=== PATIENT | male | born 1985 | race African-American/Black ===

== ENCOUNTER 2022-08-20 19:46 | Observation (INO) ==
[2022-08-20] MEDS ORDERED: SODIUM CHLORIDE 0.9% 1000ML 1,000 ML IV ONE (20:55)
--- NOTE | 2022-08-20 20:55 | Emergency Department Note ---
Impression & Plan Depression with suicidal ideation, Overdose by ingestion ED Provider Note NAME: VERNON PARTIDA AGE: 36 SEX: M : 1985 ARRIVES VIA: Walk-In INFORMANT: Patient, history is also obtained from the present ED PROVIDER(S): Jimmie Catherine DO CHIEF COMPLAINT: Overdose HPI: The patient is a 36-year-old male who presented [facility] for an evaluation of medication overdose. The patient takes multiple medications for psychiatric illness. He denies having any history of suicidal ideation the past. He is being very guarded and does not want to participate in this evaluation. The patient at this time admits that he took a weeks worth of his medications all at 1 time between 5 and 6 PM and attempt to harm himself. The patient has had no vomiting. He has had no fevers. He had no recent trauma. He has been very guarded and will not admit to why he is having this feeling that he wants to harm himself. ROS: See above HPI for pertinent positives & negatives. A total of 10 systems reviewed and were otherwise negative. PAST MEDICAL HISTORY: See Below PAST SURGICAL HISTORY: See Below FAMILY HISTORY: See Below SOCIAL HISTORY: See Below HOME MEDICATIONS: See Below ALLERGIES: See Below VITALS: See Below PHYSICAL EXAMINATION: GENERAL: The patient is awake and alert. He is resting comfortably. EYES: The conjunctivae are clear. The pupils are round and reactive. EARS, NOSE, MOUTH AND THROAT: The nose is without any evidence of any deformity. NECK: The neck is nontender and supple. RESPIRATORY: Normal respiratory effort is noted there is no evidence of wheezing rhonchi or rales CARDIOVASCULAR: Regular rate and rhythm noted there no murmurs rubs or gallops normal S1 normal S2. GASTROINTESTINAL: The abdomen is soft. Abdomen is nontender. MUSCULOSKELETAL/EXTREMITIES: There is no evidence of gross deformity full range of motion is noted in the hips and shoulders. SKIN: There is no obvious evidence of any rash. There are no petechiae, pallor or cyanosis noted. NEUROLOGIC: Patient is awake alert and oriented x3 strength is symmetric patellar reflexes are 2+ bilaterally PSYCH: The patient makes poor eye contact mostly evaluation. His affect is very flat. Patient is at this time is admitting that he was trying to harm himself MEDICAL DECISION MAKING: The patient is a 36-year-old male who presented to the emergency department for mental health evaluation. [facility] He admits t hat he was stocking up his medications over the course of the last week. He took a handful of his outpatient medications at 1 time between 5 and 6 PM. The patient states that he was trying to hurt himself. The patient was not able to be medically cleared in the emergency department. His case was discussed with the poison center, [facility]. They recommended an observation overnight to continue to monitor the patient for symptoms. Initially his EKG showed no QTc prolongation or QRS prolongation. They recommended repeat EKG in 4 to 6 hours as well as magnesium if the QTc were to prolong. They recommended IV fluids. They recommended Reglan if the patient needed antiemetics as well as benzodi azepines at the patient became educated. I discussed the patient's condition with the on-call [facility] hospitalist. Triage Nursing notes reviewed. Prior medical records reviewed Vital Signs: reviewed and remarkable for no significant abnormalities Differential diagnosis: Mood disorder, infection, hypoglycemia, electrolyte abnormalities, cardiac sources, intracerebral event, toxicologic, trauma, neurologic, as well as other pathologies. ER treatment provided: See below Diagnostics interpreted by me: ECG: EKG was obtained in the emergency department. My interpretation is normal sinus rhythm at 86 bpm. There is no ectopy. There is no acute ST segment abnormalities noted. QTc was 411 ms. QRS duration was 80 ms. Cardiac Monitoring: An order was placed for continuous cardiac monitoring. The monitor shows a rate of 85 bpm with sinus rhythm. Laboratory studies: As stated above and show below. Imaging studies: See below. Consultation(s): Poison control was consulted. At this time they recommend 12-hour observation given the patient's unknown amount of ingestion. They also recommended the usual labs including Tylenol and aspirin levels. They recommended repeat EKG in 4 to 6 hours. They recommend 2 g of magnesium IV if the QTc becomes greater than 500. They also recommend IV fluids Reglan if needed for vomiting and benzodiazepines as needed. I discussed this case with Dr. Dickson [facility] Past Med/Surg History Medical History (Updated 08/20/22 @ 22:43 by Jimmie Catherine DO) Depression with anxiety Social History Smoking Status: Never smoker Feels Safe at Home: Yes Results & Data (ED) Vital Signs Vital Signs - 24 hr 08/20/22 19:54 08/20/22 20:32 08/20/22 20:35 Temperature 36.6 C Temperature Source Temporal Artery Scan Pulse Rate 94 H 85 Pulse Rate [Finger] 88 Respiratory Rate 18 17 Respiratory Effort / Characteristics Non-Labored Spontaneous Respiratory Depth Normal Normal Blood Pressure 135/91 Blood Pressure [Right Arm] 114/90 Blood Pressure Mean 105 Blood Pressure Mean [Right Arm] 98 Blood Pressure Position Sitting Pulse Oximetry 96 98 Oxygen Delivery Method Room Air Room Air Sepsis Recent Fever Within 48 Hours No Sepsis New/Unexplained Change in Mental Status N/A Sepsis Action Taken by Nursing No Action Required Home Medications Current Medication List: was personally reviewed by me Laboratory Data Attestation: I reviewed the patient's lab results. 08/20/22 21:00 08/20/22 21:00 Lab Results 08/20/22 08/20/22 08/20/22 Range/Units 21:00 21:00 21:00 WBC 6.20 (4.8-10.8) K/ul RBC 4.22 L (4.70-6.10) M/uL Hgb 13.7 L (14.0-18.0) g/dl Hct 39.7 L (42.0-52.0) % MCV 94.1 (80.0-100.0) fL MCH 32.5 (25.0-34.0) pg MCHC 34.5 (32.0-36.0) g/dL RDW Std Deviation 39.9 (36.4-46.3) fL RDW Coeff of Edward 11.7 (11.5-14.5) % Plt Count 251 (130-400) K/uL MPV 10.2 (9.4-12.4) fL Immature Gran % (Auto) 0.2 % Neut % (Auto) 37.9 % Lymph % (Auto) 46.1 % Cole % (Auto) 9.2 % Eos % (Auto) 6.0 % Baso % (Auto) 0.6 % Neut # (Auto) 2.35 (1.40-6.50) K/uL Lymph # (Auto) 2.86 (1.2-3.4) K/uL Cole # (Auto) 0.57 (0.11-0.59) K/uL Eos # (Auto) 0.37 (0-0.50) K/uL Baso # (Auto) 0.04 (0-0.2) K/uL Immature Gran # (Auto) 0.01 (0.01-0.20) K/uL Sodium 140 (136-145) mmol/L Potassium 3.9 (3.5-5.1) mmol/L Chloride 105 (98-107) mmol/L Carbon Dioxide 29 (21-32) mmol/L Anion Gap 6 (3-11) BUN 12 (6-23) mg/dl Creatinine 0.93 (0.6-1.4) mg/dl Est Cr Clr Drug Dosing Not Reportable Est GFR ( Amer) 120.3 ml/min Est GFR (Non-Af Amer) 103.8 ml/min BUN/Creatinine Ratio 12.9 (10-20) Glucose 102 H (70-99(Fasting)) mg/dl Calcium 9.6 (8.5-10.1) mg/dl Magnesium 2.0 (1.7-2.4) mg/dl Total Bilirubin 0.5 (0.2-1.0) mg/dl AST 21 (13-39) U/L ALT 20 (7-52) U/L Alkaline Phosphatase 44 (34-104) U/L Total Protein 7.5 (6.0-8.3) gm/dl Albumin 4.4 (3.4-5.0) gm/dl Globulin 3.1 (2.5-4.0) gm/dl Albumin/Globulin Ratio 1.4 (0.9-2) TSH 1.373 (0.300-4.500) uIu/ml Salicylates (3.0-30) mg/dl Acetaminophen (10-30) ug/ml SARS-CoV-2, RNA, NAAT (NEGATIVE) 08/20/22 08/20/22 Range/Units 21:00 21:00 WBC (4.8-10.8) K/ul RBC (4.70-6.10) M/uL Hgb (14.0-18.0) g/dl Hct (42.0-52.0) % MCV (80.0-100.0) fL MCH (25.0-34.0) pg MCHC (32.0-36.0) g/dL RDW Std Deviation (36.4-46.3) fL RDW Coeff of Edward (11.5-14.5) % Plt Count (130-400) K/uL MPV (9.4-12.4) fL Immature Gran % (Auto) % Neut % (Auto) % Lymph % (Auto) % Cole % (Auto) % Eos % (Auto) % Baso % (Auto) % Neut # (Auto) (1.40-6.50) K/uL Lymph # (Auto) (1.2-3.4) K/uL Cole # (Auto) (0.11-0.59) K/uL Eos # (Auto) (0-0.50) K/uL Baso # (Auto) (0-0.2) K/uL Immature Gran # (Auto) (0.01-0.20) K/uL Sodium (136-145) mmol/L Potassium (3.5-5.1) mmol/L Chloride (98-107) mmol/L Carbon Dioxide (21-32) mmol/L Anion Gap (3-11) BUN (6-23) mg/dl Creatinine (0.6-1.4) mg/dl Est Cr Clr Drug Dosing Est GFR ( Amer) ml/min Est GFR (Non-Af Amer) ml/min BUN/Creatinine Ratio (10-20) Glucose (70-99(Fasting)) mg/dl Calcium (8.5-10.1) mg/dl Magnesium (1.7-2.4) mg/dl Total Bilirubin (0.2-1.0) mg/dl AST (13-39) U/L ALT (7-52) U/L Alkaline Phosphatase (34-104) U/L Total Protein (6.0-8.3) gm/dl Albumin (3.4-5.0) gm/dl Globulin (2.5-4.0) gm/dl Albumin/Globulin Ratio (0.9-2) TSH (0.300-4.500) uIu/ml Salicylates < 3.0 L (3.0-30) mg/dl Acetaminophen < 3 L (10-30) ug/ml SARS-CoV-2, RNA, NAAT NEGATIVE (NEGATIVE) Administered Medications Discontinued Medications Sodium Chloride (Nss 1000ml) 1,000 mls @ 999 mls/hr IV .Q1H1M ONE Stop: 08/20/22 21:55 Last Infusion: 08/20/22 22:39 Dose: 0 mls/hr Documented By: Admin: 08/20/22 21:32 Dose: 999 mls/hr Documented By: ASW Discharge Plan Visit Data Chief Complaint: Overdose (Accidental) Stated Complaint: NAUSEA,ABDOMINAL PAIN,SWALLOWED PRESCRIPTION ED Provider: Jimmie Catherine Discharge Problem: Depression with suicidal ideation, Overdose by ingestion Patient Disposition: Being Evaluated by Hospitalist Forms Stand Alone Forms: [facility] Referrals Referrals: Rosa Elena COSTELLO [Primary Care Provider] -
[2022-08-20 21:35] LABS: Basophils # (auto) 0.04 K/uL (0-0.2); Basophils % (auto) 0.6 %; Eosinophils # (auto) 0.37 K/uL (0-0.50); Hematocrit (blood only) 39.7 % (42.0-52.0); Hemoglobin 13.7 g/dl (14.0-18.0); Immature Granulocytes # (auto) 0.01 K/uL (0.01-0.20); Immature Granulocytes % (auto) 0.2 %; Lymphocytes # (auto) 2.86 K/uL (1.2-3.4); Lymphocytes % (auto) 46.1 %; Mean Corpuscular Hemoglobin 32.5 pg (25.0-34.0); Mean Corpuscular Hgb Conc 34.5 g/dL (32.0-36.0); Mean Corpuscular Volume 94.1 fL (80.0-100.0); Mean Platelet Volume 10.2 fL (9.4-12.4); Monocytes # (auto) 0.57 K/uL (0.11-0.59); Monocytes % (auto) 9.2 %; Neutrophils # (auto) 2.35 K/uL (1.40-6.50); Neutrophils % (auto) 37.9 %; Platelet Count 251 K/uL (130-400); RDW Coefficient of Variation 11.7 % (11.5-14.5); RDW Standard Deviation 39.9 fL (36.4-46.3); Red Blood Count 4.22 M/uL (4.70-6.10)
[2022-08-20 21:50] LABS: Alanine Aminotransferase 20 U/L (7-52); Albumin Globulin Ratio 1.4 (0.9-2); Albumin Level 4.4 gm/dl (3.4-5.0); Alkaline Phosphatase 44 U/L (34-104); Anion Gap 6 (3-11); Aspartate Aminotransferase 21 U/L (13-39); BUN Creatinine Ratio 12.9 (10-20); Bilirubin,Total 0.5 mg/dl (0.2-1.0); Blood Urea Nitrogen 12 mg/dl (6-23); Calcium 9.6 mg/dl (8.5-10.1); Carbon Dioxide 29 mmol/L (21-32); Chloride 105 mmol/L (98-107); Est GFR (African American) 120.3 ml/min; Est GFR (Non-African American) 103.8 ml/min; Globulin 3.1 gm/dl (2.5-4.0); Glucose 102 mg/dl (70-99(Fasting)); Potassium 3.9 mmol/L (3.5-5.1); Sodium 140 mmol/L (136-145); Total Protein 7.5 gm/dl (6.0-8.3)
[2022-08-20 22:24] LABS: Acetaminophen < 3 ug/ml (10-30); Salicylate < 3.0 mg/dl (3.0-30)
--- NOTE | 2022-08-21 01:21 | History and Physical Report ---
DATE OF ADMISSION: 08/20/2022. CHIEF COMPLAINT: Drug overdose. HISTORY OF PRESENT ILLNESS: This is a 36-year-old male with history of psychiatric illness and asthma. Denies any other medical problems, presents because of drug overdose. The patient says he took 1 week worth of all his medications between 5:00 and 6:00 p.m. He says he did it to harm himself. Currently, he is feeling okay. Resting comfortably and hemodynamically stable, alert, awake, and answering appropriately, sometimes he is choosing not to answer. Hemodynamically stable. Denies any chest pain, no shortness of breath, no headaches. He has some dizziness, no blurred visions, no earache, no runny nose, no sore throat, no cough, no fevers, no nausea. He says he has some abdominal discomfort. He says normal bowel and bladder movements. He denies any smoking and denies any drug use, but states he used to drink alcohol, he says last drink was several months ago. ALLERGIES: POLLEN EXTRACT, SHELLFISH DERIVED, DUST. PAST MEDICAL HISTORY: As mentioned above. PAST SURGICAL HISTORY: Denies any surgical history. MEDICATIONS: He is on albuterol 2 puffs inhalation q.i.d. p.r.n., buspirone 15 mg p.o. b.i.d., alvesco 1 puff inhalation as directed, Remeron 15 mg p.o. at bedtime, olanzapine 15 mg p.o. at bedtime, venlafaxine 75 mg p.o. daily. FAMILY HISTORY: Denies any family history. SOCIAL HISTORY: Denies smoking history. Drinks alcohol, last drink was several months ago. Denies drug use. REVIEW OF SYSTEMS: As per HPI. Rest of the review of systems is negative. PHYSICAL EXAMINATION: GENERAL: The patient is of moderate build, not in acute distress. VITAL SIGNS: Temperature 36.6, pulse 85, respiratory rate 17, blood pressure 114/90, oxygen 98% on room air. HEENT: Pupils equal, round and reactive to light. Oral mucosa moist. NECK: No JVD. No neck masses seen. CARDIOVASCULAR: S1 and S2 heard. Regular rate and rhythm. No murmur, no gallop. RESPIRATORY SYSTEM: Normal AP diameter. No accessory muscle use. No wheezing, no crackles. ABDOMEN: Soft, bowel sounds present, nontender. Mild discomfort. No distention. CENTRAL NERVOUS SYSTEM: Alert and oriented. Speech is clear. No facial droop. Obeys simple commands. Moves extremities. EXTREMITIES: No edema, no erythema. LABORATORY DATA: WBC 6.3, hemoglobin 13.7, hematocrit 39.7, platelets 251. Sodium 140, potassium 3.9, chloride 105, bicarb 29, BUN 12, creatinine 0.9, serum glucose 102, calcium 9.6, magnesium 2, total bilirubin 0.5, AST 21, ALT 20, alkaline phosphatase 44. TSH 1.3. Salicylate less than 3. Tylenol less than 3. SARS-CoV-2 rapid test negative. EKG: Showing normal sinus rhythm at a rate of 86, QTc of 441. No acute ST changes seen. ASSESSMENT AND PLAN: This is a 36-year-old male, who presents because of drug overdose. 1. Drug overdose: The patient took 1 week worth of his own medication to harm himself. Denies taking medication of anyone else. Poison Control was notified by the ER. Also discussed with the Poison Control. Recommend to observe in the hospital 6-12 hours. So, his 12 hours would be like 5 a.m. Poison Control says they are going to follow him in the hospital. To check EKGs for every 4-6 hours. Recommeds to use Reglan for nausea and benzodiazepine for agitation. We will also consult psychiatry. Suicide precautions Closely monitor in tele floor. 2. Asthma: . We will use his home inhalers. 3. Psychiatric illness: We will hold his home medication because he has overdosed them. We will consult Psychiatry for further recommendations. 5. Deep venous thrombosis prophylaxis: SCD. DISPOSITION: Closely monitor in tele floor. Disposition to be determined. Job ID: [id number] MTDD
[2022-08-21] MEDS: SODIUM CHLORIDE 0.9% 1000ML 1,000 ML IV SCH ×3 (01:34→17:59)
[2022-08-21 03:30] LABS: Appearance Urine Clear (Clear); Bilirubin Urine Negative (Negative); Blood Urine Negative (Negative); Color Urine Yellow; Glucose Urine UA Negative (Negative); Ketones Urine Negative (Negative); Leukocyte Esterase Urine Negative (Negative); Nitrite Urine Negative (Negative); Protein Urine Negative (Negative); Specific Gravity Urine 1.011 (1.000-1.030); Urobilinogen Urine Negative (Negative)
[2022-08-21 04:00] LABS: Amphetamines+Metham, Urine Neg (Neg); Barbiturates, Urine Neg (Neg); Benzodiazepine, Urine Neg (Neg); Cocaine, Urine Neg (Neg); MDMA (Ecstacy), Urine Neg (Neg); Methadone, Urine Neg (Neg); Opiate, Urine Neg (Neg); Phencyclidine, Urine Neg (Neg)
[2022-08-21 06:43] LABS: Basophils # (auto) 0.04 K/uL (0-0.2); Basophils % (auto) 0.7 %; Eosinophils # (auto) 0.39 K/uL (0-0.50); Eosinophils % (auto) 6.7 %; Hematocrit (blood only) 37.9 % (42.0-52.0); Hemoglobin 12.8 g/dl (14.0-18.0); Lymphocytes # (auto) 2.14 K/uL (1.2-3.4); Lymphocytes % (auto) 36.8 %; Mean Corpuscular Hemoglobin 32.2 pg (25.0-34.0); Mean Corpuscular Hgb Conc 33.8 g/dL (32.0-36.0); Mean Corpuscular Volume 95.5 fL (80.0-100.0); Mean Platelet Volume 10.1 fL (9.4-12.4); Monocytes # (auto) 0.43 K/uL (0.11-0.59); Monocytes % (auto) 7.4 %; Neutrophils # (auto) 2.82 K/uL (1.40-6.50); Neutrophils % (auto) 48.4 %; Platelet Count 222 K/uL (130-400); RDW Coefficient of Variation 11.5 % (11.5-14.5); Red Blood Count 3.97 M/uL (4.70-6.10); White Blood Count 5.82 K/ul (4.8-10.8)
[2022-08-21 06:59] LABS: BUN Creatinine Ratio 9.3 (10-20); Calcium 9.1 mg/dl (8.5-10.1); Creatinine Clr Calc Pharmacy 127.8 ml/min; Est GFR (African American) 127.5 ml/min; Magnesium 1.9 mg/dl (1.7-2.4); Potassium 3.9 mmol/L (3.5-5.1)
[2022-08-21] MEDS ORDERED: SENNA 8.6 MG TAB PO ONE (14:37)
--- NOTE | 2022-08-21 16:42 | Psychiatric Consultation ---
Date of Consultation August 21, 2022 Impression / Recommendations Impression Pt who may or many not have a primary mood disorder but who presents substantial evidence for an expectation that suicidal behavior or threats will result in external gain. He presents as seeing himself as both having nothing to lose and being somewhat invincible (I'm not convinced that he can appreciate that killing himself would end his life). His current IR venlafaxine 75 mg is unlikely to have any positive effect fue both to the low dose and to the pharmacokitentics of this drug's requiring multiplle daily doses or extended-release form. (1) Antisocial personality disorder: Plan - Pt certainly does not need any psychiatric medications during his brief stay here, since he just took an excessive amount. - While here, pt needs close 1:1 supervision. - Items that could be used to harm himself or others should be kept out of his reach, including small items make of paper or plastic, unless he's being observed from within arms reach. - Suggest future consideration of the role of psychopharmacology and eliminating any medications that can't be used at effective doses and regimens (such as venlafaxine IR) - Suggest any psychiatric medications that are ordered be administered inf oral- dissolving forms or crushed in a small food item to prevent accumulation. - Until it can be establisshed that pt is not suicidal, I recommend that in the correctional setting he not be allowed any items at all in his cell that are made out of metal, plasic, leather, cloth, or paper.except for a mattress and blanket only when in 4-point leather restraints. Ideally, he should be in a cell that has no electrical or plumbing fixtures of any kind. Psych History Chief Complaint "[]". History of Present Illness 36 y/o M [facility] inmate who is reported to have taken a 2-week supply of his medication as well as of someone else's. Pt has given varying reports of what happened. As part of a thorough review of the available medical records, I have read and confirmed the following note by the psychiatric liaison nurse: "Met with patient for initial psychiatric assessment. Patient resting in bed with 2 guards and 1:1 staff at bedside. Patient cooperative and pleasant, A&Ox3. He reports taking an intentional overdose of prescribed medications as well as other medications that are not prescribed to him (Seroquel and Trazodone). Patient reports he has been in solitary confinement for ~ 30 days and was due to go back into general population yesterday. He is frustrated that he has not been able to speak with [facility] administration regarding his transfer within the [facility]. Patient denies active SI but unable to contract for safety at this time. He does reports nausea and lethargy but denies any significant complaints." On approach, pt lies appearing comfortable in bed. When I ask him to tell me about what's happened, he says he's "doing OK". After several more general invitations to tell me what happened I finally had to point out "I can't help but notice you are here - how aobut you tell me about that?" Pt says he was in his "room" and "took a bunch of pills for suicide". When I asked what pills he responded "my pills" and when I asked how many he said "all of them". He was not able to name any of his psychiatric medications that he says he takes for depression. I asked how he managed to accumulate pills and he said he "found some in my room" and the rest he "just didn't swallow and saed up". He couldn't tell me where he hid them during the "saving up" phase. I voiced surprise at his being given intact tablets, since my experience in correctional settings has been that patients are given oral-dissolving forms, l iquids, or crushed tablets/open capsules in applesauce or pudding to prevent cheeking and accumulation of pills but pt assured me that has not been the case for him. I asked him to tell me where he was when this happened. He said "just in my room" then later said he "did it right in front of the nurse because I was trying to get help and wanted my to be on her conscience". I asked him what sort of help he was trying to get but he didn't really respond. I also asked how wanting help fit with hoping he'd be in order to haunt a nurse and he didn't respond to that directly, just saying that maybe she could pass on to his family that he loved them. I suggested there were likely other avenues for such communication (such as letters), to which he didn't respond. I again asked where this took place within the [facility]. Pt said he was in his "regular room" but went on to say he was in a segragated unit "because of behavior". Pt mentioned several times that he couldn't return to [facility] because he was suicidal but also because "the doctor wants me to poop before i can leave and was going to give me something for that". I pointed out that right before I entered his room a nurse had told me that he'd refused the laxative that was ordered, to which he responded that would "probably take it later". Review of documents sent from DOC indicates that all of pt's prescribed psychiatric medications immediate-release and can be crushed Past Psychiatric History Previous Psych History: unknown Allergies Allergy/AdvReac Type Severity Reaction Status Date / Time pollen extracts Allergy Intermediate Unknown Verified 08/20/22 23:01 shellfish derived Allergy Intermediate Unknown Verified 08/20/22 23:01 dust Allergy Intermediate Unknown Uncoded 08/20/22 23:01 Home Medications Medication Instructions Recorded Confirmed Type albuterol sulfate 90 mcg/actuation 2 inh inhalation QID PRN Shortness 08/20/22 08/20/22 History breath activated powder inhaler Of Breath buspirone 15 mg tablet 15 mg PO BID 08/20/22 08/20/22 History ciclesonide 80 mcg/actuation 1 puff inhalation UD 08/20/22 08/20/22 History aerosol inhaler (Alvesco) mirtazapine 15 mg tablet 15 mg PO HS 08/20/22 08/20/22 History olanzapine 15 mg tablet 15 mg PO HS 08/20/22 08/20/22 History venlafaxine 75 mg tablet 75 mg PO DAILY 08/20/22 08/20/22 History Patient History Medical History Depression with anxiety Social History Smoking Status: Never smoker Second Hand Exposure: No; Do You Dip or Chew Tobacco: No; Tobacco Cessation Education Requested by Patient: No Hx Alcohol Use: No Hx Substance Use: No Preferred Language: Welsh Communication Ability: Effective Acoustical Carpenter Required: No Beliefs That Will Affect Care: None Current Living Situation: Other Current Living Situation Comment: [facility] Other Information That Helps Us Care for You: No Feels Safe at Home: Yes Safety Concerns: Feels Safe At This Time Assistive Devices: Glasses Physical Exam Psychiatric: Orientation: alert, oriented to person, oriented to place, oriented to time and + guarded Apperance: appropriately dressed and appropriately groomed Eye Contact: + poor eye contact Motor Behavior: no abnormal motor movements Speech: normal rate/rhythm/volume of speech bland affect, non-distressed Mood: + depressed mood Thought Process: + concrete thought process Thought Content: + cognitive distortions Suicidal Thoughts: + reports suicidal thoughts, + reports suicidal plan and + reports suicidal intent Homicidal Thoughts: denies homicidal thoughts Hallucinations: no auditory hallucinations and no visual hallucinations Cognition: recent memory grossly intact and remote memory grossly intact Estimated Intelligence: average estimated intelligence Insight: + poor insight Judgment: + impaired judgement Vital Signs (Past 24 Hours): Last Vital Signs Temp 36.4 C L 08/21/22 01:31 Pulse 71 08/21/22 02:00 Resp 15 08/21/22 01:31 BP 115/61 08/21/22 01:31 Pulse Ox 96 08/21/22 01:31 O2 Del Method Room Air 08/21/22 01:31 Review of Systems Globally positive, in that pt endorses nearly every item Results & Data (PSY) Medications Administered Sodium Chloride (Nss 1000ml) 1,000 mls @ 125 mls/hr IV .Q8H [facility] Stop: 09/20/22 01:28 Last Admin: 08/21/22 09:53 Dose: 125 mls/hr Documented By: Infusion: 08/21/22 09:53 Dose: 125 mls/hr Documented By: Infusion: 08/21/22 09:52 Dose: 125 mls/hr Documented By: Admin: 08/21/22 01:34 Dose: 125 mls/hr Documented By: ESG Coding Level of Care Code 44784 IN/OBS CONSULT LVL 4,60M Diagnoses Antisocial personality disorder F60.2 Time Spent (min) 75
--- NOTE | 2022-08-21 16:46 | Hospitalist Progress Note ---
Date of Service August 21, 2022 Assessment & Plan (1) Depression with suicidal ideation: (2) Overdose by ingestion: Plan This is a 36-year-old male, who presents because of drug overdose. 1. Drug overdose: The patient took 1 week worth of his own medication to harm himself.( and possibly someone else's meds?) Poison Control was notified by the ER. Also discussed with the Poison Control. Recommend to observe in the hospital 6-12 hours. So, his 12 hours would be around 5 a.m. Poison Control says they are going to follow him in the hospital. To check EKGs for every 4-6 hours. Recommends to use Reglan for nausea and benzodiazepine for agitation. ECG repeated this AM obtained - unchanged Blood work - unremarkable Pt is awake, alert, able to answer simple questions. He is esting and ambulating to the bathroom. Psychiatry consulted - appreciate their input. Suicide precautions Closely monitor in tele floor. 2. Asthma: cont. his home inhalers. 3. Psychiatric illness: Hold his home medication because he has overdosed them.Psychiatry consulted for further recommendations. DVT prophylaxis: SCDs. DISPOSITION: Closely monitor in tele floor. Disposition to be determined. Admission and Anticipated Discharge Date Admission Date: August 21, 2022 Subjective Pt seen in follow up of overdosing on medication Poison control contacted from ED - and recommended to observe and monitor ECG ECG reviewed and unchanged Patient is currently sitting up in bed in no acute distress. Per RN and patient he is eating. Patient reports minimal abdominal discomfort. No fever, chills, chest pain, shortness of breath. he is breathing comfortably on RA. Review of Systems Review of Systems: All systems reviewed & are unremarkable except as noted in Subjective Physical Exam Physical Exam: GENERAL: The patient is of moderate build, not in acute distress. HEENT: Pupils equal, round and reactive to light. Oral mucosa moist. NECK: No JVD. No neck masses seen. CARDIOVASCULAR: S1 and S2 heard. Regular rate and rhythm. No murmur, no gallop. RESPIRATORY SYSTEM: Normal AP diameter. No accessory muscle use. No wheezing, no crackles. ABDOMEN: Soft, bowel sounds present, nontender. Mild discomfort. No distention. CENTRAL NERVOUS SYSTEM: Alert and oriented. Speech is clear. No facial droop. Obeys simple commands. Moves extremities. EXTREMITIES: No edema, no erythema. Results & Data Results & Data Laboratory Results 08/21/22 08/21/22 08/21/22 Range/Units 06:16 06:16 02:22 WBC 5.82 (4.8-10.8) K/ul RBC 3.97 L (4.70-6.10) M/uL Hgb 12.8 L (14.0-18.0) g/dl Hct 37.9 L (42.0-52.0) % MCV 95.5 (80.0-100.0) fL MCH 32.2 (25.0-34.0) pg MCHC 33.8 (32.0-36.0) g/dL RDW Std Deviation 40.0 (36.4-46.3) fL RDW Coeff of Edward 11.5 (11.5-14.5) % Plt Count 222 (130-400) K/uL MPV 10.1 (9.4-12.4) fL Immature Gran % (Auto) 0.0 % Neut % (Auto) 48.4 % Lymph % (Auto) 36.8 % Cedar % (Auto) 7.4 % Eos % (Auto) 6.7 % Baso % (Auto) 0.7 % Neut # (Auto) 2.82 (1.40-6.50) K/uL Lymph # (Auto) 2.14 (1.2-3.4) K/uL Cedar # (Auto) 0.43 (0.11-0.59) K/uL Eos # (Auto) 0.39 (0-0.50) K/uL Baso # (Auto) 0.04 (0-0.2) K/uL Immature Gran # (Auto) 0.00 L (0.01-0.20) K/uL Sodium 140 (136-145) mmol/L Potassium 3.9 (3.5-5.1) mmol/L Chloride 107 (98-107) mmol/L Carbon Dioxide 29 (21-32) mmol/L Anion Gap 4 (3-11) BUN 8 (6-23) mg/dl Creatinine 0.86 (0.6-1.4) mg/dl Est Cr Clr Drug Dosing 127.8 Est GFR ( Amer) 127.5 ml/min Est GFR (Non-Af Amer) 110.0 ml/min BUN/Creatinine Ratio 9.3 L (10-20) Glucose 105 H (70-99(Fasting)) mg/dl Calcium 9.1 (8.5-10.1) mg/dl Magnesium 1.9 (1.7-2.4) mg/dl Total Bilirubin (0.2-1.0) mg/dl AST (13-39) U/L ALT (7-52) U/L Alkaline Phosphatase (34-104) U/L Total Protein (6.0-8.3) gm/dl Albumin (3.4-5.0) gm/dl Globulin (2.5-4.0) gm/dl Albumin/Globulin Ratio (0.9-2) TSH (0.300-4.500) uIu/ml Urine Color Urine Appearance (Clear) Urine pH (4.5-7.5) Ur Specific Elma (1.000-1.030) Urine Protein (Negative) Urine Glucose (UA) (Negative) Urine Ketones (Negative) Urine Blood (Negative) Urine Nitrite (Negative) Urine Bilirubin (Negative) Urine Urobilinogen (Negative) Ur Leukocyte Esterase (Negative) Nasal Screen MRSA (PCR) (Negative) Salicylates (3.0-30) mg/dl Urine Opiates Screen Neg (Neg) Ur Methadone, Qual Neg (Neg) Acetaminophen (10-30) ug/ml Urine Barbiturates Neg (Neg) Ur Phencyclidine (PCP) Neg (Neg) U Amphetamin/Meth Scrn Neg (Neg) MDMA (Ecstasy) Screen Neg (Neg) U Benzodiazepines Scrn Neg (Neg) Ur Cocaine Metabolite Neg (Neg) U Marijuana (THC) Screen Neg (Neg) SARS-CoV-2, RNA, NAAT (NEGATIVE) 08/21/22 08/21/22 08/20/22 Range/Units 02:22 01:47 21:00 WBC (4.8-10.8) K/ul RBC (4.70-6.10) M/uL Hgb (14.0-18.0) g/dl Hct (42.0-52.0) % MCV (80.0-100.0) fL MCH (25.0-34.0) pg MCHC (32.0-36.0) g/dL RDW Std Deviation (36.4-46.3) fL RDW Coeff of Edward (11.5-14.5) % Plt Count (130-400) K/uL MPV (9.4-12.4) fL Immature Gran % (Auto) % Neut % (Auto) % Lymph % (Auto) % Cedar % (Auto) % Eos % (Auto) % Baso % (Auto) % Neut # (Auto) (1.40-6.50) K/uL Lymph # (Auto) (1.2-3.4) K/uL Cedar # (Auto) (0.11-0.59) K/uL Eos # (Auto) (0-0.50) K/uL Baso # (Auto) (0-0.2) K/uL Immature Gran # (Auto) (0.01-0.20) K/uL Sodium (136-145) mmol/L Potassium (3.5-5.1) mmol/L Chloride (98-107) mmol/L Carbon Dioxide (21-32) mmol/L Anion Gap (3-11) BUN (6-23) mg/dl Creatinine (0.6-1.4) mg/dl Est Cr Clr Drug Dosing Est GFR ( Amer) ml/min Est GFR (Non-Af Amer) ml/min BUN/Creatinine Ratio (10-20) Glucose (70-99(Fasting)) mg/dl Calcium (8.5-10.1) mg/dl Magnesium (1.7-2.4) mg/dl Total Bilirubin (0.2-1.0) mg/dl AST (13-39) U/L ALT (7-52) U/L Alkaline Phosphatase (34-104) U/L Total Protein (6.0-8.3) gm/dl Albumin (3.4-5.0) gm/dl Globulin (2.5-4.0) gm/dl Albumin/Globulin Ratio (0.9-2) TSH (0.300-4.500) uIu/ml Urine Color Yellow Urine Appearance Clear (Clear) Urine pH 6.0 (4.5-7.5) Ur Specific Elma 1.011 (1.000-1.030) Urine Protein Negative (Negative) Urine Glucose (UA) Negative (Negative) Urine Ketones Negative (Negative) Urine Blood Negative (Negative) Urine Nitrite Negative (Negative) Urine Bilirubin Negative (Negative) Urine Urobilinogen Negative (Negative) Ur Leukocyte Esterase Negative (Negative) Nasal Screen MRSA (PCR) Negative (Negative) Salicylates (3.0-30) mg/dl Urine Opiates Screen (Neg) Ur Methadone, Qual (Neg) Acetaminophen (10-30) ug/ml Urine Barbiturates (Neg) Ur Phencyclidine (PCP) (Neg) U Amphetamin/Meth Scrn (Neg) MDMA (Ecstasy) Screen (Neg) U Benzodiazepines Scrn (Neg) Ur Cocaine Metabolite (Neg) U Marijuana (THC) Screen (Neg) SARS-CoV-2, RNA, NAAT NEGATIVE (NEGATIVE) 08/20/22 08/20/22 08/20/22 Range/Units 21:00 21:00 21:00 WBC (4.8-10.8) K/ul RBC (4.70-6.10) M/uL Hgb (14.0-18.0) g/dl Hct (42.0-52.0) % MCV (80.0-100.0) fL MCH (25.0-34.0) pg MCHC (32.0-36.0) g/dL RDW Std Deviation (36.4-46.3) fL RDW Coeff of Edward (11.5-14.5) % Plt Count (130-400) K/uL MPV (9.4-12.4) fL Immature Gran % (Auto) % Neut % (Auto) % Lymph % (Auto) % Cedar % (Auto) % Eos % (Auto) % Baso % (Auto) % Neut # (Auto) (1.40-6.50) K/uL Lymph # (Auto) (1.2-3.4) K/uL Cedar # (Auto) (0.11-0.59) K/uL Eos # (Auto) (0-0.50) K/uL Baso # (Auto) (0-0.2) K/uL Immature Gran # (Auto) (0.01-0.20) K/uL Sodium 140 (136-145) mmol/L Potassium 3.9 (3.5-5.1) mmol/L Chloride 105 (98-107) mmol/L Carbon Dioxide 29 (21-32) mmol/L Anion Gap 6 (3-11) BUN 12 (6-23) mg/dl Creatinine 0.93 (0.6-1.4) mg/dl Est Cr Clr Drug Dosing Not Reportable Est GFR ( Amer) 120.3 ml/min Est GFR (Non-Af Amer) 103.8 ml/min BUN/Creatinine Ratio 12.9 (10-20) Glucose 102 H (70-99(Fasting)) mg/dl Calcium 9.6 (8.5-10.1) mg/dl Magnesium 2.0 (1.7-2.4) mg/dl Total Bilirubin 0.5 (0.2-1.0) mg/dl AST 21 (13-39) U/L ALT 20 (7-52) U/L Alkaline Phosphatase 44 (34-104) U/L Total Protein 7.5 (6.0-8.3) gm/dl Albumin 4.4 (3.4-5.0) gm/dl Globulin 3.1 (2.5-4.0) gm/dl Albumin/Globulin Ratio 1.4 (0.9-2) TSH 1.373 (0.300-4.500) uIu/ml Urine Color Urine Appearance (Clear) Urine pH (4.5-7.5) Ur Specific Elma (1.000-1.030) Urine Protein (Negative) Urine Glucose (UA) (Negative) Urine Ketones (Negative) Urine Blood (Negative) Urine Nitrite (Negative) Urine Bilirubin (Negative) Urine Urobilinogen (Negative) Ur Leukocyte Esterase (Negative) Nasal Screen MRSA (PCR) (Negative) Salicylates < 3.0 L (3.0-30) mg/dl Urine Opiates Screen (Neg) Ur Methadone, Qual (Neg) Acetaminophen < 3 L (10-30) ug/ml Urine Barbiturates (Neg) Ur Phencyclidine (PCP) (Neg) U Amphetamin/Meth Scrn (Neg) MDMA (Ecstasy) Screen (Neg) U Benzodiazepines Scrn (Neg) Ur Cocaine Metabolite (Neg) U Marijuana (THC) Screen (Neg) SARS-CoV-2, RNA, NAAT (NEGATIVE) 08/20/22 Range/Units 21:00 WBC 6.20 (4.8-10.8) K/ul RBC 4.22 L (4.70-6.10) M/uL Hgb 13.7 L (14.0-18.0) g/dl Hct 39.7 L (42.0-52.0) % MCV 94.1 (80.0-100.0) fL MCH 32.5 (25.0-34.0) pg MCHC 34.5 (32.0-36.0) g/dL RDW Std Deviation 39.9 (36.4-46.3) fL RDW Coeff of Edward 11.7 (11.5-14.5) % Plt Count 251 (130-400) K/uL MPV 10.2 (9.4-12.4) fL Immature Gran % (Auto) 0.2 % Neut % (Auto) 37.9 % Lymph % (Auto) 46.1 % Cedar % (Auto) 9.2 % Eos % (Auto) 6.0 % Baso % (Auto) 0.6 % Neut # (Auto) 2.35 (1.40-6.50) K/uL Lymph # (Auto) 2.86 (1.2-3.4) K/uL Cedar # (Auto) 0.57 (0.11-0.59) K/uL Eos # (Auto) 0.37 (0-0.50) K/uL Baso # (Auto) 0.04 (0-0.2) K/uL Immature Gran # (Auto) 0.01 (0.01-0.20) K/uL Sodium (136-145) mmol/L Potassium (3.5-5.1) mmol/L Chloride (98-107) mmol/L Carbon Dioxide (21-32) mmol/L Anion Gap (3-11) BUN (6-23) mg/dl Creatinine (0.6-1.4) mg/dl Est Cr Clr Drug Dosing Est GFR ( Amer) ml/min Est GFR (Non-Af Amer) ml/min BUN/Creatinine Ratio (10-20) Glucose (70-99(Fasting)) mg/dl Calcium (8.5-10.1) mg/dl Magnesium (1.7-2.4) mg/dl Total Bilirubin (0.2-1.0) mg/dl AST (13-39) U/L ALT (7-52) U/L Alkaline Phosphatase (34-104) U/L Total Protein (6.0-8.3) gm/dl Albumin (3.4-5.0) gm/dl Globulin (2.5-4.0) gm/dl Albumin/Globulin Ratio (0.9-2) TSH (0.300-4.500) uIu/ml Urine Color Urine Appearance (Clear) Urine pH (4.5-7.5) Ur Specific Elma (1.000-1.030) Urine Protein (Negative) Urine Glucose (UA) (Negative) Urine Ketones (Negative) Urine Blood (Negative) Urine Nitrite (Negative) Urine Bilirubin (Negative) Urine Urobilinogen (Negative) Ur Leukocyte Esterase (Negative) Nasal Screen MRSA (PCR) (Negative) Salicylates (3.0-30) mg/dl Urine Opiates Screen (Neg) Ur Methadone, Qual (Neg) Acetaminophen (10-30) ug/ml Urine Barbiturates (Neg) Ur Phencyclidine (PCP) (Neg) U Amphetamin/Meth Scrn (Neg) MDMA (Ecstasy) Screen (Neg) U Benzodiazepines Scrn (Neg) Ur Cocaine Metabolite (Neg) U Marijuana (THC) Screen (Neg) SARS-CoV-2, RNA, NAAT (NEGATIVE) Medications Administered Current Inpatient Medications Sodium Chloride (Nss 1000ml) 1,000 mls @ 125 mls/hr IV .Q8H RAMANA Stop: 09/20/22 01:28 Last Admin: 08/21/22 09:53 Dose: 125 mls/hr
[2022-08-21] MEDS ORDERED: SENNA 8.6 MG TAB PO SCH (18:00)
--- NOTE | 2022-08-21 18:53 | Discharge Summary ---
Date of Service August 21, 2022 Admission HPI Per Admitting Provider This is a 36-year-old male with history of psychiatric illness and asthma. Denies any other medical problems, presents because of drug overdose. The patient says he took 1 week worth of all his medications between 5:00 and 6:00 p.m. He says he did it to harm himself. Currently, he is feeling okay. Resting comfortably and hemodynamically stable, alert, awake, and answering appropriately, sometimes he is choosing not to answer. Hemodynamically stable. Denies any chest pain, no shortness of breath, no headaches. He has some dizziness, no blurred visions, no earache, no runny nose, no sore throat, no cough, no fevers, no nausea. He says he has some abdominal discomfort. He says normal bowel and bladder movements. He denies any smoking and denies any drug use, but states he used to drink alcohol, he says last drink was several months ago. Admission Exam Per Admitting Provider GENERAL: The patient is of moderate build, not in acute distress. VITAL SIGNS: Temperature 36.6, pulse 85, respiratory rate 17, blood pressure 114/90, oxygen 98% on room air. HEENT: Pupils equal, round and reactive to light. Oral mucosa moist. NECK: No JVD. No neck masses seen. CARDIOVASCULAR: S1 and S2 heard. Regular rate and rhythm. No murmur, no gallop. RESPIRATORY SYSTEM: Normal AP diameter. No accessory muscle use. No wheezing, no crackles. ABDOMEN: Soft, bowel sounds present, nontender. Mild discomfort. No distention. CENTRAL NERVOUS SYSTEM: Alert and oriented. Speech is clear. No facial droop. Obeys simple commands. Moves extremities. EXTREMITIES: No edema, no erythema. Principal Diagnosis Medication overdose, intentional Discharge Exam GENERAL: The patient is of moderate build, not in acute distress. HEENT: Pupils equal, round and reactive to light. Oral mucosa moist. NECK: No JVD. No neck masses seen. CARDIOVASCULAR: S1 and S2 heard. Regular rate and rhythm. No murmur, no gallop. RESPIRATORY SYSTEM: Normal AP diameter. No accessory muscle use. No wheezing, no crackles. ABDOMEN: Soft, bowel sounds present, nontender. Mild discomfort. No distention. CENTRAL NERVOUS SYSTEM: Alert and oriented. Speech is clear. No facial droop. Obeys simple commands. Moves extremities. EXTREMITIES: No edema, no erythema. Discharge Data Allergies Allergy/AdvReac Type Severity Reaction Status Date / Time pollen extracts Allergy Intermediate Unknown Verified 08/20/22 23:01 shellfish derived Allergy Intermediate Unknown Verified 08/20/22 23:01 dust Allergy Intermediate Unknown Uncoded 08/20/22 23:01 Consultations 08/20/22 22:52 ED Decision to Admit Stat 08/21/22 01:29 Consult Psychiatry Routine Hospital Course (1) Depression with suicidal ideation: (2) Overdose by ingestion: Plan This is a 36-year-old male, who presents because of drug overdose. 1. Drug overdose: The patient took 1 week worth of his own medication to harm himself.( and possibly someone else's meds?) Poison Control was notified by the ER. Also discussed with the Poison Control. Recommend to observe in the hospital 6-12 hours. So, his 12 hours would be around 5 a.m. Poison Control says they are going to follow him in the hospital. To check EKGs for every 4-6 hours. Recommends to use Reglan for nausea and benzodiazepine for agitation. Suicide precautions Closely monitor in tele floor. ECG repeated this AM obtained - unchanged Blood work - unremarkable Pt is awake, alert, able to answer simple questions. He is eating and ambulating to the bathroom. Psychiatry consulted - Pt certainly does not need any psychiatric medications during his brief stay here, since he just took an excessive amount. - While here, pt needs close 1:1 supervision. - Items that could be used to harm himself or others should be kept out of his reach, including small items make of paper or plastic, unless he's being observed from within arms reach. - Suggest future consideration of the role of psychopharmacology and eliminating any medications that can't be used at effective doses and regimens (such as venlafaxine IR) - Suggest any psychiatric medications that are ordered be administered in oral- dissolving forms or crushed in a small food item to prevent accumulation. - Until it can be established that pt is not suicidal, I recommend that in the correctional setting he not be allowed any items at all in his cell that are made out of metal, plastic, leather, cloth, or paper.except for a mattress and blanket only when in 4-point leather restraints. Ideally, he should be in a cell that has no electrical or plumbing fixtures of any kind. Discussed w/ psychiatry - recommend to discharge back to correctional facility. Suicide precautions, as above. 2. Asthma: cont. his home inhalers. 3. Psychiatric illness: Hold his home medication because he has overdosed them.Psychiatry consulted for further recommendations. As above. DISPOSITION:Plan to DC back to correctional facility. Total Time Total Time Spent Total Time Spent (In Minutes): 40 Discharge Plan Discharge Items Patient Disposition: Correctional Facility Reason For Visit: DRUG OVERDOSE Discharge Diagnosis: Medication overdose, intentional Activity: Per Instructions section Non-emergency contact: Primary Care Provider and Psychiatrist Call non-emergency contact if: you have any medication questions and your symptoms worsen Follow-up/Referrals: Rosa Elena COSTELLO [Primary Care Provider] - Diet: Regular Diet Comment: KIM Nuno Attending Provider Instructions: Patient presents from correctional facility, after ingesting medications/intentional overdose. Patient was monitored in the hospital, and poison control was also contacted. Discussed in detail with psychiatry, and plan to discharge patient back to correctional facility. As patient still reports suicidal ideation, recommend suicidal precautions/psychiatry unit at his correctional facility. This was discussed in detail with correctional facility healthcare provider. Pending Studies at Discharge: No Stand-Alone Forms: My [facility] Skilled Items Patient informed of condition?: Yes Discharge Level of Care: Other Communicable Disease: No Discharge Prognosis: Stable Lines: None Urinary Catheter: No Medications and DC Order Prescriptions: Continued venlafaxine 75 mg Tablet 75 mg PO DAILY olanzapine 15 mg Tablet 15 mg PO HS Rx Instructions: crush mirtazapine 15 mg Tablet 15 mg PO HS buspirone 15 mg Tablet 15 mg PO BID Alvesco 80 mcg/actuation Hfa Aerosol Inhaler 1 puff INHALATION UD Rx Instructions: keeps on person albuterol sulfate 90 mcg/actuation Aerosol Powdr Breath Activated 2 inh INHALATION QID PRN (Reason: Shortness Of Breath) Discharge Orders: Discharge Order (Routine); Ordered 08/21/22 Ordered By: Stewart Puentes Admission Data Admit Date/Time: 08/21/22 00:04 Attending Provider: Stewart Puentes Admit Provider: Derek Dickson Primary Care Provider: Rosa Elena COSTELLO Other Providers: Derek Dickson
--- NOTE | 2022-08-22 01:53 | Electrocardiogram Report ---
Test Reason : Blood Pressure : / mmHG Vent. Rate : 086 BPM Atrial Rate : 086 BPM P-R Int : 160 ms QRS Dur : 080 ms QT Int : 344 ms P-R-T Axes : 030 079 048 degrees QTc Int : 411 ms Normal sinus rhythm Normal ECG No previous ECGs available Confirmed by Felix Ceron ([id number]) on 08/22/2022 1:53:17 AM Referred By: Rosa Elena COSTELLO Confirmed By:Felix Ceron
--- NOTE | 2022-08-22 02:02 | Electrocardiogram Report ---
Test Reason : Blood Pressure : / mmHG Vent. Rate : 074 BPM Atrial Rate : 074 BPM P-R Int : 174 ms QRS Dur : 080 ms QT Int : 360 ms P-R-T Axes : 033 073 050 degrees QTc Int : 399 ms Normal sinus rhythm Normal ECG When compared with ECG of 20-AUG-2022 20:30, No significant change was found Confirmed by Felix Ceron ([id number]) on 08/22/2022 2:01:49 AM Referred By: Rosa Elena COSTELLO Confirmed By:Felix Ceron
--- NOTE | 2022-08-22 02:09 | Electrocardiogram Report ---
Test Reason : Blood Pressure : / mmHG Vent. Rate : 087 BPM Atrial Rate : 087 BPM P-R Int : 172 ms QRS Dur : 078 ms QT Int : 340 ms P-R-T Axes : 030 067 042 degrees QTc Int : 409 ms Normal sinus rhythm Normal ECG When compared with ECG of 21-AUG-2022 01:37, No significant change was found Confirmed by Felix Ceron ([id number]) on 08/22/2022 2:08:37 AM Referred By: Rosa Elena COSTELLO Confirmed By:Felix Ceron
== END 2022-08-21 20:00 | DRG 918 ==
LOC: ED 19:46 → INTOOBSV 08-21 00:04 → 2S 08-21 00:04